=== PATIENT | female | born 1985 ===

== ENCOUNTER 2018-07-29 05:30 | Inpatient (IN) | payer BC ==
[2018-07-29 07:24] VITALS: BMI 31.1
[2018-07-29] MEDS ORDERED: Lidocaine 1% (PF) 30 ML VIAL SC PRN (07:24)
[2018-07-29] MEDS ORDERED: Butorphanol Tartrate 1 MG/ML VIAL SLOW IVP PRN (07:24)
[2018-07-29] MEDS ORDERED: Ibuprofen 800 MG TAB PO PRN (07:24)
[2018-07-29] MEDS ORDERED: Promethazine HCl 25 MG/ML VIAL IM PRN ×2 (07:24→14:49)
[2018-07-29] MEDS ORDERED: Lactated Ringer's 1,000 ML IV SCH (07:24)
[2018-07-29] MEDS ORDERED: Ondansetron PF 4 MG/2 ML Vial IVP PRN ×2 (07:24→14:49)
[2018-07-29] MEDS ORDERED: HYDROcodone/Acetaminophen 5/325 mg Tablet PO PRN ×2 (07:24)
[2018-07-29] MEDS ORDERED: Oxytocin 10 UNITS/ML VIAL ONE (07:33)
[2018-07-29] MEDS ORDERED: NS w/ Oxytocin 10 units 500 ML ONE (07:33)
[2018-07-29] MEDS: Lactated Ringer's 1,000 ML IV SCH ×2 (07:45→10:36)
[2018-07-29 08:13] LABS: Hemoglobin 10.3 g/dL (12.0-16.0); Mean Corpuscular HGB CONC 32.3 g/dL (32.0-36.0); Mean Corpuscular Hemoglobin 27.6 pg (27.0-31.0); Mean Corpuscular Volume 85.3 fL (78.0-98.0); Mean Platelet Volume 10.3 fL (7.4-10.4); Platelet Count 204 thou/uL (130-400); RBC Distribution Width 13.4 % (11.5-14.5); Red Blood Cell (RBC) Count 3.74 mill/uL (4.20-5.40); White Blood Cell (WBC) Count 7.3 thou/uL (4.8-10.8)
[2018-07-29] MEDS: NS w/ Oxytocin 10 units 500 ML IV SCH (08:22)
[2018-07-29 08:53] LABS: HBSAg Index 0.18 S/CO (0-0.99); Hep B Surf Ag Non-Reactive S/CO (NonReactive)
[2018-07-29 08:59] LABS: Syphilis Antibody Nonreactive (Nonreactive); Syphilis Antibody Index 0.05 S/CO (<1.00 Non-Reactive)
[2018-07-29] MEDS ORDERED: Lidocaine 1.5% w/Epi 1:200K 30 ML VIAL (Epid Use) ONE (10:06)
[2018-07-29] MEDS ORDERED: Fentanyl 4 mcg/Bup 0.1% Cadd 100 ML ONE (10:31)
[2018-07-29] MEDS: NS / Oxytocin 40 units/1000ml 1,000 ML IV PRN ×2 (14:20→15:43)
[2018-07-29] MEDS ORDERED: Naloxone HCl 0.4 mg/ml Vial IVP PRN ×2 (14:49)
[2018-07-29] MEDS ORDERED: ePHEDrine/0.9% NaCl/PF SYRINGE 50 mg/10 ml SLOW IVP PRN (14:49)
[2018-07-29] MEDS ORDERED: Eucerin (Mineral Oil/Petrolatum,White) 30 gm Jar TOP PRN (14:49)
[2018-07-29] MEDS ORDERED: diphenhydrAMINE 50 MG/ML VIAL IVP PRN (14:49)
[2018-07-29] MEDS ORDERED: Acetaminophen 325 MG TAB PO PRN (14:49)
[2018-07-29] MEDS ORDERED: Lactated Ringer's 500 ML IV PRN (14:49)
[2018-07-29] MEDS ORDERED: Fentanyl 4 mcg/Bupivacaine 0.1% Cassette 100 ML EPIDURAL SCH (15:00)
[2018-07-29] MEDS ORDERED: Communication Order-Pharmacy FS SCH (15:00)
[2018-07-29] MEDS ORDERED: Bupivacaine/Epinephrine 0.25% 30 ML VIAL ONE (21:33)
[2018-07-29] MEDS ORDERED: Lanolin Ointment 7 GM TUBE TOP PRN (21:40)
[2018-07-29] MEDS ORDERED: diphenhydrAMINE 25 MG CAP PO PRN (21:40)
[2018-07-29] MEDS ORDERED: Acetaminophen/Codeine 30-300mg Tablet PO PRN ×2 (21:40)
[2018-07-29] MEDS ORDERED: Benzocaine/Menthol 20-0.5% 60 ML CAN TOP PRN (21:40)
[2018-07-29] MEDS ORDERED: Milk Of Magnesia 30 ML UDCUP PO PRN (21:40)
[2018-07-29] MEDS ORDERED: Measles/Mumps/Rubella 10 MCG/0.5 ML VIAL SC ONE (21:40)
[2018-07-29] MEDS ORDERED: Bisacodyl 10 MG SUPP PR PRN (21:40)
[2018-07-29] MEDS ORDERED: Varicella virus, LIVE 0.5 ML VIAL SC ONE (21:40)
[2018-07-29] MEDS ORDERED: Adacel (T-DAP) 0.5 ML SYRINGE IM ONE (21:40)
[2018-07-29] MEDS ORDERED: Preparation H Ointment 28 GM TUBE PR PRN (21:40)
--- NOTE | 2018-07-29 21:42 | PDOC.EVN ---
Event Note - Event Note Event Note: @[id number] on 07/29/18.. Asked by RN to place orders on behalf of Dr nguyễn. Orders placed
[2018-07-29] MEDS ORDERED: NS / Oxytocin 40 units/1000ml 1,000 ML IV SCH (21:45)
[2018-07-29 22:10] LABS: #Eosinphils 0.1 thou/uL (0.0-0.7); #Lymphocytes 2.1 thou/uL (1.20-3.40); #Monocytes 0.8 thou/uL (0.11-0.59); #Neutrophils 10.5 thou/uL (1.40-6.50); %Basophils 0.3 % (0.0-1.0); %Eosinophils 0.6 % (0.0-10.0); %Lymphocytes 15.5 % (21.0-51.0); %Monocytes 5.9 % (0.0-10.0); %Neutrophils 77.8 % (42.0-75.0); Hemoglobin 8.4 g/dL (12.0-16.0); Mean Corpuscular HGB CONC 32.2 g/dL (32.0-36.0); Mean Corpuscular Hemoglobin 27.7 pg (27.0-31.0); Mean Platelet Volume 9.5 fL (7.4-10.4); Platelet Count 169 thou/uL (130-400); RBC Distribution Width 13.3 % (11.5-14.5); Red Blood Cell (RBC) Count 3.02 mill/uL (4.20-5.40); White Blood Cell (WBC) Count 13.5 thou/uL (4.8-10.8)
[2018-07-30] MEDS: Ibuprofen 800 MG TAB PO SCH ×2 (00:05→14:07)
[2018-07-30] MEDS: Lactated Ringer's 1,000 ML IV SCH (06:20)
[2018-07-30] MEDS ORDERED: Ferrous Sulfate 325 MG TAB PO SCH (08:00)
[2018-07-30] MEDS ORDERED: Prenatal Vitamin 1 TAB PO SCH (09:00)
[2018-07-30] MEDS ORDERED: Docusate Calcium (SURFAK) 240 MG CAP PO SCH (09:00)
[2018-07-30] MEDS: NS w/ Oxytocin 10 units 500 ML IV SCH (09:38)
[2018-07-30 11:50] VITALS: BP 120/64; TEMP 98.4
== END 2018-07-30 16:25 | disposition home or self-care (01) | DRG 807 ==
LOC: L&D 06:44 → 3SW 17:11
PROVIDERS: ADMIT Obstetrics & Gynecology; ATTEND Obstetrics & Gynecology
PROC: 10E0XZZ Delivery of Products of Conception, External Approach (ICD-10-PCS; principal; 2018-07-29)
PROC: 0KQM0ZZ Repair Perineum Muscle, Open Approach (ICD-10-PCS; 2018-07-29)
PROC: 10907ZC Drainage of Amniotic Fluid, Therapeutic from Products of Conception, Via Natural or Artificial Opening (ICD-10-PCS; 2018-07-29)
PROC: 3E033VJ Introduction of Other Hormone into Peripheral Vein, Percutaneous Approach (ICD-10-PCS; 2018-07-29)
DX: O48.0 Post-term pregnancy (principal); Z37.0 Single live birth; Z3A.40 40 weeks gestation of pregnancy; O70.1 Second degree perineal laceration during delivery; O69.1XX0 Labor and delivery complicated by cord around neck, with compression, not applicable or unspecified
CPT/HCPCS: 36415; 51702; 85027; 86780; 86850; 86900; 86901; 87340; J2001; J2405; J2590